=== PATIENT | female | born 1935 | race Caucasian/White ===

== ENCOUNTER 2024-06-06 16:38 | Emergency (ER) | payer OTHER, BC ==
[2024-06-06 16:51] VITALS: BP 154/60; PULSE 69; RESP 18; TEMP 97.7; BMI 27.4
== END 2024-06-06 18:18 | disposition home or self-care (01) ==
LOC: FER 16:38
DX: S90.32XA Contusion of left foot, initial encounter (principal); W23.1XXA Caught, crushed, jammed, or pinched between stationary objects, initial encounter
CPT/HCPCS: 73610-TC-LT-FY; 73630-TC-LT; 99283-25